=== PATIENT | female | born 1995 | race Caucasian/White ===

== ENCOUNTER 2017-11-26 21:11 | Emergency (ER) | payer MEDICAID ==
[~2017-11-26] VITALS: Ht 157.5 cm; Wt 74.8 kg
--- NOTE | 2017-11-26 21:30 | NUR ---
PT PRESENTED TO THE ER WITH A C/O LEFT SIDED NECK PAIN THAT RADIATES TO THE LEFT SHOULDER AND UP THE BACK OF THE NECK TO THE BASE OF THE SKULL. PT STATED THAT THIS PAIN WAS NON PROVOKES AND HAS BEEN PROGRESSIVELY GETTING WORSE.
[2017-11-26] MEDS ORDERED: KETOROLAC TROMETHAMINE INJ 60 MG/2 ML VIAL IM ONE (22:00)
[2017-11-26] MEDS ORDERED: KETOROLAC TROMETHAMINE INJ 30 MG/ML VIAL ONE (22:02)
[2017-11-26] MEDS ORDERED: CYCLOBENZAPRINE 10 MG TABLET ONE (22:41)
[2017-11-26 22:57] VITALS: BP 138/87
--- NOTE | 2017-11-26 22:58 | NUR ---
Patient discharged to home in stable condition. Written and verbal after care instructions given. Patient verbalizes understanding of instruction AND RX. PT AMBULATED TO THE LOBBY WITH A STEADY GAIT. PT IS TAKING A TAXI HOME.
[2017-11-26] MEDS ORDERED: CYCLOBENZAPRINE 10 MG TABLET PO ONE (23:00)
== END 2017-11-26 22:58 | disposition home or self-care (01) ==
LOC: ER 21:11
DX: G44.209 Tension-type headache, unspecified, not intractable (principal)
CPT/HCPCS: A4606; J1885; Z7610

== ENCOUNTER 2018-07-24 11:45 | Emergency (ER) | payer MEDICAID ==
[~2018-07-24] VITALS: Ht 157.5 cm; Wt 61.2 kg
[2018-07-24 12:24] VITALS: BP 127/84
== END 2018-07-24 12:33 | disposition home or self-care (01) ==
LOC: ER 11:45
DX: J02.9 Acute pharyngitis, unspecified (principal)
CPT/HCPCS: 99282; A4606; Z7610